=== PATIENT | male | born 1950 | race Caucasian/White ===

== ENCOUNTER 2025-04-25 06:24 | Day surgery (SDC) | payer OTHER, SELFPAY ==
[2025-04-25 11:07] LABS: Glucose - Point of Care 112 mg/dl (70-99)
== END 2025-04-25 12:50 | disposition home or self-care (01) ==
LOC: GI 06:24
PROVIDERS: ATTENDING PHYSICIAN Surgery
DX: Z12.11 Encounter for screening for malignant neoplasm of colon (principal); D12.3 Benign neoplasm of transverse colon; K57.30 Diverticulosis of large intestine without perforation or abscess without bleeding; Z86.0100 Personal history of colon polyps, unspecified
CPT/HCPCS: 45380; 82962; 88305